=== PATIENT | female | born 1965 | race Caucasian/White ===

== ENCOUNTER 2018-02-07 11:40 | Emergency (ER) | payer OTHER ==
--- OUTSIDE RECORDS SUMMARY | 2018-02-07 11:54 | XMS REPORT | Clinical Summary ---
:1965 Author Organization [facility] Address [address] [place] [id number] Care Team Providers Name Role Phone Asked, No Pcp Primary Care Provider Unavailable Allergies Not on File Current Medications Not on file Active Problems Not on file Encounters Date Type Specialty Care Team Description 09/13/2017 Office Visit Neuropsychology Caesar Ratliff, PhD Memory loss 05/24/2017 Office Visit Neuropsychology Caesar Ratliff, PhD Memory loss due to medical condition after 02/06/2017 Social History Tobacco Use Types Packs/Day Years Used Date Never Assessed Sex Assigned at Date Recorded Not on file Last Filed Vital Signs Not on file Plan of Treatment Health Maintenance Due Date Last Done Comments CERVICAL CANCER SCREENING 1986 BREAST CANCER SCREENING 2015 COLON CANCER SCREENING 2015 SHINGRIX VACCINE (#1) 2015 INFLUENZA VACCINE 02/22/2018 Results Not on fileafter 02/06/2017
--- OUTSIDE RECORDS SUMMARY | 2018-02-07 11:54 | XMS REPORT | Continuity of Care Document ---
:1965 Author Organization Interface Problems Problem Status Onset Classification Date Comments Source Date Reported Discharge 05/20/20 05/23/2016 [facility] Diagnosis: Arm 16 Medical laceration Center LACERATION Active 05/19/[address] Hyperlipidemia Resolved Problem 05/23/2016 [facility] HTN (<span Resolved Problem 05/23/2016 [facility] ID="[id number]" Medical >Confirmed</span> Center ) Medications Medication Details Route Status Patient Ordering Order Source Instructions Provider Date Cephalexin 500 500 mg=1 Active [place] [facility] Oral Capsule cap, PO, 016 Medical [Keflex] QID, X 10 Center day, # 40 cap, 0 Refill(s) Epinephrine 0.01 1 ml, Inactive [place] MG/ML / Route: 016 Medical Lidocaine SUB-Q, Center Hydrochloride 10 Dosing MG/ML Injectable Weight Solution 79.545, kg, ONCE, STAT, Start date: 05/19/16 23:20:00 CDT, Stop date: 05/19/16 23:20:00 CDT Lidocaine 20 mg, 2 Inactive [place] Hydrochloride 10 mL, Route: 016 Medical MG/ML Injectable SUB-Q, Center Solution Drug Form: INJ, Dosing Weight 79.545, kg, ONCE, STAT, Start date: 05/19/16 23:12:00 CDT, Stop date: 05/19/16 23:12:00 CDTNotes: (Same as: Xylocaine) Morphine 4 mg, 1 Inactive [place] mL, Route: 016 Medical IVP, Drug Center form: INJ, ONCE, Dosing Weight 79.545, kg, Priority: STAT, Start date: 05/19/16 22:03:00 CDT, Stop date: 05/19/16 22:03:00 CDTNotes: (Same as:MORPhin e Sulfate) Allergies, Adverse Reactions, Alerts Substance Category Reaction Severity Reaction Status Date Comments Source type Reported NKDA Assertion Drug Active [facility] Immunizations Immunization Date Given Site Status Last Updated Comments Source Results Order Name Results Value Reference Date Interpretation Comments Source Range HEMATOLOGY RBC 3.91 M/CMM 4.20 - 05/20 5.40 /2015 [facility] HEMATOLOGY Hct 32.5 % 36.0 - 05/20 [place] 48.0 /2015 [facility] HEMATOLOGY Hgb 11.5 g/dL 12.0 - 05/20 16.0 /2015 [facility] HEMATOLOGY MCV 83.1 fL 80.0 - 05/20 [place] 98.0 [facility] HEMATOLOGY WBC 9.9 K/CMM 3.7 - 10.4 05/20 [facility] HEMATOLOGY MPV 9.2 fL 7.4 - 10.4 05/20 [facility] HEMATOLOGY MCHC 35.3 g/dL 32.0 - 05/20 36.0 [facility] HEMATOLOGY MCH 29.4 pg 27.0 - 05/20 31.0 [facility] HEMATOLOGY Platelet 185 K/CMM 133 - 450 05/20 [facility] HEMATOLOGY RDW 12.9 % 11.5 - 05/20 14.5 /2015 [facility] HEMATOLOGY Lymphocytes 1.4 K/CMM 1.0 - 5.5 05/20 [facility] HEMATOLOGY Basophils 0.3 % 0.0 - 1.0 05/20 [facility] HEMATOLOGY Segs-Bands # 7.9 K/CMM 1.5 - 8.1 05/20 [facility] HEMATOLOGY Eosinophils 0.5 % 0.0 - 4.0 05/20 [facility] HEMATOLOGY Segs 80.4 % 45.0 - 05/20 [place] 75.0 2016 [facility] HEMATOLOGY Lymphocytes 14.4 % 20.0 - 05/20 40.0 2016 [facility] HEMATOLOGY Monocytes 4.4 % 2.0 - 12.0 05/20 [facility] HEMATOLOGY Monocytes # 0.4 K/CMM 0.0 - 0.8 05/20 [facility] HEMATOLOGY Eosinophils 0.1 K/CMM 0.0 - 0.5 05/20 [facility] HEMATOLOGY Angle Rapid 79 degrees 64 - 80 05/20 [facility] HEMATOLOGY Max 65 mm 52 - 71 05/20 [facility] HEMATOLOGY G-value 9.2 K d/sc 5.0 - 11.6 05/20 [facility] HEMATOLOGY Estimated % 0.0 % 0.0 - 7.5 05/20 [facility] HEMATOLOGY ACT (TEG) 97 s 86 - 118 05/20 [facility] HEMATOLOGY [place] 0.4 min 05/20 [facility] HEMATOLOGY R-time Rapid 0.5 min 0.4 - 0.7 05/20 [facility] HEMATOLOGY K-time Rapid 0.9 min 0.6 - 2.3 05/20 [facility] ELECTROLYTE AGAP 15.1 meq/L 10.0 - 05/20 [facility] 20.0 [facility] ELECTROLYTE Sodium Lvl 142 meq/L 135 - 145 05/20 [facility] ELECTROLYTE Potassium 4.1 meq/L 3.5 - 5.1 05/20 [facility] ELECTROLYTE Creatinine 0.52 mg/dL 0.50 - 05/20 [facility] Lvl 1.40 [facility] ELECTROLYTE eGFR 112 05/20 Result Comment: The eGFR is calculated using the CKD-EPI formula. In most young, healthy individuals the eGFR will be > 90 mL/min/1.73m2. The eGFR declines with age. An eGFR of 60-89 may be normal in [facility] mL/min/1.73 some populations, particularly the elderly, for whom the CKD-EPI formula has not been extensively validated. Use of the eGFR is not recommended in the following populations: [address] Individuals with unstable creatinine concentrations, including patients and those with serious co-morbid conditions. Patients with extremes in muscle mass or diet. The data above are obtained from the National Kidney Disease Education Program (NKDEP) which additionally recommends that when the eGFR is used in patients with extremes of body mass index for purposes of drug dosing, the eGFR should be multiplied by the estimated BMI. ELECTROLYTE Calcium Lvl 8.1 mg/dL 8.5 - 10.5 05/20 [facility] ELECTROLYTE CO2 23 meq/L 24 - 32 05/20 [facility] ELECTROLYTE Chloride Lvl 108 meq/L 95 - 109 05/20 [facility] ELECTROLYTE BUN 12 mg/dL 7 - 22 05/20 S [facility] ELECTROLYTE Glucose Lvl 120 mg/dL 70 - 99 05/20 S [facility] HEMATOLOGY Platelet Clumped 133 - 450 05/20 Result Comment: Medical [facility] Lucie RILEY 05/19/2016 23:32 HEMATOLOGY MCH 28.8 pg 27.0 - 05/20 31.0 [facility] HEMATOLOGY Hct 30.5 % 36.0 - 05/20 [place] 48.0 [facility] HEMATOLOGY MCV 83.6 fL 80.0 - 05/20 [place] 98.0 [facility] HEMATOLOGY RBC 3.65 M/CMM 4.20 - 05/20 [place] 5.40 [facility] HEMATOLOGY Hgb 10.5 g/dL 12.0 - 05/20 16.0 [facility] HEMATOLOGY WBC 7.0 K/CMM 3.7 - 10.4 05/20 [facility] HEMATOLOGY MCHC 34.5 g/dL 32.0 - 05/20 [place] 36.0 [facility] HEMATOLOGY MPV 8.8 fL 7.4 - 10.4 05/20 [facility] HEMATOLOGY RDW 13.0 % 11.5 - 05/20 [place] 14. [facility] HEMATOLOGY Plt Morph Clumped 05/20 [facility] (05/19/16 10:43 PM) [place] HEMATOLOGY Monocytes # 0.2 K/CMM 0.0 - 0.8 05/20 [facility] HEMATOLOGY Lymphocytes 1.0 K/CMM 1.0 - 5.5 05/20 [place] # [facility] HEMATOLOGY Segs-Bands # 5.7 K/CMM 1.5 - 8.1 05/20 [facility] HEMATOLOGY Lymphocytes 13.9 % 20.0 - 05/20 40.0 [facility] HEMATOLOGY Segs 81.8 % 45.0 - 05/20 [place] 75.0 [facility] HEMATOLOGY RBC Morph Normal 05/20 [facility] (05/19/16 10:43 PM) [place] HEMATOLOGY Monocytes 3.3 % 2.0 - 12.0 05/20 [facility] HEMATOLOGY Basophils 0.5 % 0.0 - 1.0 05/20 [facility] HEMATOLOGY Eosinophils 0.5 % 0.0 - 4.0 05/20 [facility] /2015 [facility] Wrist Wrist EXAM: XR LEFT WRIST 3 VIEWS 05/19 - [facility] complete DX complete DX /2015 - Medical EXAM: XR LEFT FOREARM 2 VIEWS Center Read by: Benjamin Rick MD Dictated Date/time: 05/19/16 22:41 DATE: 05/19/2016 10:23 PM CDT Electronically Signed by: Benjamin Rick MD 05/19/16 22:42 FINAL REPORT INDICATION: Laceration COMPARISON: None TECHNIQUE: PA, lateral and oblique radiographs of the left wrist DISCUSSION: No acute fracture or malalignment is identified. Soft tissue swelling is present at the volar aspect of the distal forearm, with a skin surface defect that is consistent with laceration. The defect shows almost 1 cm separation of the skin surface, and is several centimeters in length. The depth is not clear based on the provided images. No foreign bodies are identified. IMPRESSION: Volar laceration at the distal forearm with surrounding swelling. No other abnormality. Forearm 2 Forearm 2 EXAM: XR LEFT WRIST 3 VIEWS 05/19 - [place] views DX views DX /2015 - Medical EXAM: XR LEFT FOREARM 2 VIEWS Center Read by: Benjamin Rick MD Dictated Date/time: 05/19/16 22:41 DATE: 05/19/2016 10:23 PM CDT Electronically Signed by: Benjamin Rick MD 05/19/16 22:42 FINAL REPORT INDICATION: Laceration COMPARISON: None TECHNIQUE: PA, lateral and oblique radiographs of the left wrist DISCUSSION: No acute fracture or malalignment is identified. Soft tissue swelling is present at the volar aspect of the distal forearm, with a skin surface defect that is consistent with laceration. The defect shows almost 1 cm separation of the skin surface, and is several centimeters in length. The depth is not clear based on the provided images. No foreign bodies are identified. IMPRESSION: Volar laceration at the distal forearm with surrounding swelling. No other abnormality. Vital Signs Vital Sign Value Date Comments Source Respitory Rate 18 05/20/2016 [facility] Systolic (mm Hg) 138 05/20/2016 [facility] Diastolic (mm Hg) 82 05/20/2016 [facility] Respitory Rate 16 05/20/2016 [facility] Systolic (mm Hg) 164 05/20/2016 [facility] Diastolic (mm Hg) 93 05/20/2016 [facility] BMI Calculated 31.06 05/20/2016 [facility] Weight 79.545 05/20/2016 [facility] Temperature Oral (F) 98.5 F 05/20/2016 [facility] Height 160.02 cm 05/20/2016 [facility] Respitory Rate 18 05/20/2016 [facility] Heart Rate 76 05/20/2016 [facility] Systolic (mm Hg) 157 05/20/2016 [facility] Diastolic (mm Hg) 94 05/20/2016 [facility] Encounters Location Location Encounter Encounter Reason Attending ADM DC Status Source Details Type Number For Provider Date Date [facility] [id number] P[place] 05/20 05/20 [facility] Kevin Chance /2015 [facility] [id number] SADIE 04/05 Active [facility] Procedures Procedure Code Date Perfomer Comments Source [id number] [facility] section [id number] [facility] Stent [id number] kidney [facility] placement<sup>1</meza Medical p> Center
--- OUTSIDE RECORDS SUMMARY | 2018-02-07 11:55 | XMS REPORT | Summary of Care ---
:1965 Author Organization [facility] Address [address] [place] [id number]- Encounter HQ Encntr_alias(FIN) [id number] Date(s): 05/19/16 - 05/20/[address] Professional Services provided by [facility] [place] [address]- Discharge Diagnosis: Arm laceration Discharge Disposition: Home or Self Care Attending Physician: Durga Ruffin MD Admitting Physician: Pernell Chance MD Referring Physician: Bala Louie MD Vital Signs Most recent to oldest 1 2 3 [Reference Range]: Height 160.02 cm (05/19/16 9:39 PM) Temperature Oral [96.4-99.1 98.5 DegF DegF] (05/19/16 9:39 PM) Blood Pressure 138/82 mmHg 164/93 mmHg 157/94 mmHg [90-140/60-90 mmHg] (05/19/16 11:32 PM) *HI* *HI* (05/19/16 9:54 PM) (05/19/16 9:39 PM) Respiratory Rate [14-20 18 BRMIN 16 BRMIN 18 BRMIN BRMIN] (05/19/16 11:32 PM) (05/19/16 9:54 PM) (05/19/16 9:39 PM) Peripheral Pulse Rate 76 bpm [60-100 bpm] (05/19/16 9:39 PM) Weight 79.545 kg (05/19/16 9:39 PM) Body Mass Index 31.06 m2 (05/19/16 9:39 PM) Problem List Condition Effective Dates Status Health Status Informant Hyperlipidemia(Confirmed) Resolved HTN (hypertension)(Confirmed) Resolved Allergies, Adverse Reactions, Alerts Substance Reaction Severity Status NKDA Active Medications Keflex 500 mg oral capsule 500 mg=1 cap, PO, QID, X 10 day, # 40 cap, 0 Refill(s) Start Date: 05/20/16 Stop Date: 05/30/16 Status: Orderedlidocaine 1% 20 mg, 2 mL, Route: SUB-Q, Drug Form: INJ, Dosing Weight 79.545, kg, ONCE, STAT , Start date: 05/19/16 23:12:00 CDT, Stop date: 05/19/16 23:12:00 CDT Notes: (Same as: Xylocaine) Start Date: 05/19/16 Stop Date: 05/19/16 Status: Orderedlidocaine-epi 1%-1:382078 1 ml, Route: SUB-Q, Dosing Weight 79.545, kg, ONCE, STAT, Start date: 05/19/16 23:20:00 CDT, Stop date: 05/19/16 23:20:00 CDT Start Date: 05/19/16 Stop Date: 05/19/16 Status: Discontinuedmorphine Sulfate 4 mg, 1 mL, Route: IVP, Drug form: INJ, ONCE, Dosing Weight 79.545, kg, Priority : STAT, Start date: 05/19/16 22:03:00 CDT, Stop date: 05/19/16 22:03:00 CDT Notes: (Same as:MORPhine Sulfate) Start Date: 05/19/16 Stop Date: 05/19/16 Status: Completed Results ELECTROLYTES Most recent to oldest [Reference Range]: 1 2 Sodium Lvl [135-145 mEq/L] 142 mEq/L (05/19/16 10:43 PM) Potassium Lvl [3.5-5.1 mEq/L] 4.1 mEq/L (05/19/16 10:43 PM) Chloride Lvl [95-109 mEq/L] 108 mEq/L (05/19/16 10:43 PM) CO2 [24-32 mEq/L] 23 mEq/L *LOW* (05/19/16 10:43 PM) AGAP [10.0-20.0 mEq/L] 15.1 mEq/L (05/19/16 10:43 PM) CHEM PANEL Most recent to oldest [Reference Range]: 1 2 Creatinine Lvl [0.50-1.40 mg/dL] 0.52 mg/dL (05/19/16 10:43 PM) eGFR 112 mL/min/1.73m2 1 *NA* (05/19/16 10:43 PM) BUN [7-22 mg/dL] 12 mg/dL (05/19/16 10:43 PM) Glucose Lvl [70-99 mg/dL] 120 mg/dL *HI* (05/19/16 10:43 PM) Calcium Lvl [8.5-10.5 mg/dL] 8.1 mg/dL *LOW* (05/19/16 10:43 PM) 1Result Comment: The eGFR is calculated using the CKD-EPI formula. In most young , healthy individualsthe eGFR will be >90 mL/min/1.73m2. The eGFR declines with age. An eGFR of 60-89 may be normal in some populations, particularly the elderly, for whom the CKD-EPI formula has not been extensively validated. Use of the eGFR is not recommended in the following populations: Individuals with unstable creatinine concentrations, including patients and those with serious co-morbid conditions. Patients with extremes in muscle mass or diet. The data above are obtained from the National Kidney Disease Education Program ( NKDEP) which additionally recommends that when the eGFR is used in patients with extremes of body mass index for purposesof drug dosing, the eGFR should be multiplied by the estimated BMI.HEMATOLOGY Most recent to oldest [Reference Range]: 1 2 WBC [3.7-10.4 K/CMM] 9.9 K/CMM 7.0 K/CMM (05/19/16 11:23 PM) (05/19/16 10:43 PM) RBC [4.20-5.40 M/CMM] 3.91 M/CMM 3.65 M/CMM *LOW* *LOW* (05/19/16 11:23 PM) (05/19/16 10:43 PM) Hgb [12.0-16.0 g/dL] 11.5 g/dL 10.5 g/dL *LOW* *LOW* (05/19/16 11:23 PM) (05/19/16 10:43 PM) Hct [36.0-48.0 %] 32.5 % 30.5 % *LOW* *LOW* (05/19/16 11:23 PM) (05/19/16 10:43 PM) MCV [80.0-98.0 fL] 83.1 fL 83.6 fL (05/19/16 11:23 PM) (05/19/16 10:43 PM) MCH [27.0-31.0 pg] 29.4 pg 28.8 pg (05/19/16 11:23 PM) (05/19/16 10:43 PM) MCHC [32.0-36.0 g/dL] 35.3 g/dL 34.5 g/dL (05/19/16 11:23 PM) (05/19/16 10:43 PM) RDW [11.5-14.5 %] 12.9 % 13.0 % (05/19/16 11:23 PM) (05/19/16 10:43 PM) Platelet [133-450 K/CMM] 185 K/CMM (05/19/16 11:23 PM) Platelet [133-450] Clumped 1 *NA* (05/19/16 10:43 PM) MPV [7.4-10.4 fL] 9.2 fL 8.8 fL (05/19/16 11:23 PM) (05/19/16 10:43 PM) Segs [45.0-75.0 %] 80.4 % 81.8 % *HI* *HI* (05/19/16 11:23 PM) (05/19/16 10:43 PM) Lymphocytes [20.0-40.0 %] 14.4 % 13.9 % *LOW* *LOW* (05/19/16 11:23 PM) (05/19/16 10:43 PM) Monocytes [2.0-12.0 %] 4.4 % 3.3 % (05/19/16 11:23 PM) (05/19/16 10:43 PM) Eosinophils [0.0-4.0 %] 0.5 % 0.5 % (05/19/16 11:23 PM) (05/19/16 10:43 PM) Basophils [0.0-1.0 %] 0.3 % 0.5 % (05/19/16 11:23 PM) (05/19/16 10:43 PM) Segs-Bands # [1.5-8.1 K/CMM] 7.9 K/CMM 5.7 K/CMM (05/19/16 11:23 PM) (05/19/16 10:43 PM) Lymphocytes # [1.0-5.5 K/CMM] 1.4 K/CMM 1.0 K/CMM (05/19/16 11:23 PM) (05/19/16 10:43 PM) Monocytes # [0.0-0.8 K/CMM] 0.4 K/CMM 0.2 K/CMM (05/19/16 11:23 PM) (05/19/16 10:43 PM) Eosinophils # [0.0-0.5 K/CMM] 0.1 K/CMM (05/19/16 11:23 PM) RBC Morph Normal (05/19/16 10:43 PM) Plt Morph Clumped (05/19/16 10:43 PM) ACT (TEG) Rapid [86-118 seconds] 97 seconds (05/19/16 11:20 PM) [place] Rapid 0.4 minutes *NA* (05/19/16 11:20 PM) R-time Rapid [0.4-0.7 minutes] 0.5 minutes (05/19/16 11:20 PM) K-time Rapid [0.6-2.3 minutes] 0.9 minutes (05/19/16 11:20 PM) Angle Rapid [64-80 degrees] 79 degrees (05/19/16 11:20 PM) Max Amplitude Rapid [52-71 mm] 65 mm (05/19/16 11:20 PM) G-value Rapid [5.0-11.6 K d/sc] 9.2 K d/sc (05/19/16 11:20 PM) Estimated % Lysis Rapid [0.0-7.5 %] 0.0 % (05/19/16 11:20 PM) 1Result Comment: Informed Lucie ECTR 05/19/2016 23:32 Immunizations No data available for this section Procedures Procedure Date Related Diagnosis Body Site hysterectomy section Stent placement1 1kidney Social History Social History Type Response Smoking Status Never smoker; Exposure to Tobacco Smoke None; Cigarette Smoking Last 365 Days No; Reg Smoking Cessation Counseling No Assessment and Plan No data available for this section
[2018-02-07] MEDS ORDERED: ONDANSETRON 4 MG/2 ML VIAL ONE (12:26)
[2018-02-07] MEDS ORDERED: NA CHLORIDE 0.9% 1,000 ML ONE (12:26)
[2018-02-07] MEDS ORDERED: KETOROLAC 30 MG/ML INJ ONE (12:26)
--- NOTE | 2018-02-07 12:40 | RAD REPORT ---
EXAM DESCRIPTION: CT - Stone Protocol - 02/07/2018 12:27 pm CLINICAL HISTORY: Flank pain. Flank pain;Pain COMPARISON: CTSTONE PROTOCOL dated 04/29/2015 TECHNIQUE: Axial images were obtained without oral or IV contrast. Lack of contrast limits solid org an and vascular assessment. The [id number] spans the entirety of the system partially obscuring uppermost abdomen and lung bases. Coronal reformatted images were obtained and reviewed. All CT scans are performed using dose optimization technique as appropriate and may include automated exposure control or mA/KV adjustment according to patient size. FINDINGS: The lower lung lyons are clear. Imaged portions of the liver and spleen show no suspicious findings on non-contrast imaging. The panc reas and adrenal glands are normal. No pathologic lymphadenopathy in the abdomen or pelvis. No urinary tract stones or obstructive uropathy. Mild inflammatory changes are seen surrounding the r ight ureter proximally and the inferior aspect of the right kidney. No bowel obstruction, free air, free fluid or abscess. The appendix is not identified as a discrete s tructure, however, no secondary findings of appendicitis are identified. No significant bony abnormality. IMPRESSION: No urinary tract stones or obstructive uropathy. Findings suspicious for early right-sided pyelonephritis noted.
[2018-02-07 13:03] LABS: Absolute Monocytes 0.4 K/uL (0.1-1.3); Absolute Neutrophil 9.2 K/uL (1.8-8.0); Basophils % 0.6 % (0-1.3); Eosinophils % 0.7 % (0-4.4); Lymphocytes % 9.3 % (15.3-44.8); MCH 29.2 pg (27.0-35.0); MCV 83.2 fL (80-100); MPV 9.5 fL (7.6-11.3); Monocytes % 3.7 % (3.3-12.3); RBC Red Blood Cell Count 5.17 M/uL (3.86-4.86)
[2018-02-07] MEDS ORDERED: CEFTRIAXONE/SWI 1gm 1 GM/10 ML SYR ONE (13:22)
[2018-02-07 13:51] LABS: Urine White Blood Cell Casts OK
[2018-02-07 13:52] LABS: Blood Morphology Comment NOT SEEN (NOT SEEN); Platelet Estimate ADEQ
[2018-02-07] MEDS ORDERED: levoFLOXacin 750 MG TAB ONE (13:52)
[2018-02-07 13:59] LABS: Urine Bacteria 20-50 /HPF (<20); Urine RBC <5 /HPF (NONE SEEN)
[2018-02-07 14:00] LABS: Urine Culture Reflex Order NOT NEEDED; Urine Mucus 2+ /HPF (NONE SEEN)
[2018-02-07 14:11] LABS: Albumin 4.2 g/dL (3.4-5.0); Bilirubin Direct 0.1 mg/dL (0-0.2); Bilirubin Total 0.7 mg/dL (0.2-1.0); Potassium 3.6 mmol/L (3.5-5.1); Protein, Total 8.2 g/dL (6.4-8.2)
--- NOTE | 2018-02-07 14:24 | EDPHYS ---
Physician Documentation [facility] Name: Ana Donnelly Age: 52 yrs Sex: Female : 1965 Arrival Date: 02/07/2018 Time: 11:43 Bed 6 Private MD: ED Physician Bala Louie HPI: 02/07 12:16 This 52 yrs old Female presents to ER via Ambulatory with complaints of Low gabriel Back Pain. 12:16 The patient presents with pain that is acute, with no known mechanism of injury. The gabriel symptoms are located in the right mid back and right low back. The pain does not radiate. The problem was sustained from unknown cause. Onset: The symptoms/episode began/occurred 2 day(s) ago. Modifying factors: The patient symptoms are alleviated by nothing, the patient symptoms are aggravated by nothing. Associated signs and symptoms: Pertinent positives: dysuria. Severity of symptoms: At their worst the symptoms were moderate, in the emergency department the symptoms are unchanged. The patient has not experienced similar symptoms in the past. 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 - Social history:: Smoking status: Patient/guardian denies using tobacco, Patient/guardian denies using alcohol. - Ebola Screening: : Patient negative for fever greater than or equal to 101.5 degrees Fahrenheit, and additional compatible Ebola Virus Disease symptoms Patient denies exposure to infectious person Patient denies travel to an Ebola-affected area in the 21 days before illness onset. - Family history:: not pertinent. ROS: 12:16 Constitutional: Negative for fever, chills, and weight loss, Eyes: Negative for injury, gabriel pain, redness, and discharge, ENT: Negative for injury, pain, and discharge, Neck: Negative for injury, pain, and swelling, Cardiovascular: Negative for chest pain, palpitations, and edema, Respiratory: Negative for shortness of breath, cough, wheezing, and pleuritic chest pain, Abdomen/GI: Negative for abdominal pain, nausea, vomiting, diarrhea, and constipation, : Negative for injury, bleeding, discharge, and swelling, MS/Extremity: Negative for injury and deformity, Skin: Negative for injury, rash, and discoloration, Neuro: Negative for headache, weakness, numbness, tingling, and seizure, Psych: Negative for depression, anxiety, suicide ideation, homicidal ideation, and hallucinations, Allergy/Immunology: Negative for hives, rash, and allergies, Endocrine: Negative for neck swelling, polydipsia, polyuria, polyphagia, and marked weight changes, Hematologic/Lymphatic: Negative for swollen nodes, abnormal bleeding, and unusual bruising. 12:16 Back: Positive for decreased range of motion, pain with movement, flank pain, on the right, of the right mid back and right low back. Exam: 12:16 Constitutional: This is a well developed, well nourished patient who is awake, alert, gabriel and in no acute distress. Head/Face: Normocephalic, atraumatic. Eyes: Pupils equal round and reactive to light, extra-ocular motions intact. Lids and lashes normal. Conjunctiva and sclera are non-icteric and not injected. Cornea within normal limits. Periorbital areas with no swelling, redness, or edema. ENT: Nares patent. No nasal discharge, no septal abnormalities noted. Tympanic membranes are normal and external auditory canals are clear. Oropharynx with no redness, swelling, or masses, exudates, or evidence of obstruction, uvula midline. Mucous membranes moist. Neck: Trachea midline, no thyromegaly or masses palpated, and no cervical lymphadenopathy. Supple, full range of motion without nuchal rigidity, or vertebral point tenderness. No Meningismus. Chest/axilla: Normal chest wall appearance and motion. Nontender with no deformity. No lesions are appreciated. Cardiovascular: Regular rate and rhythm with a normal S1 and S2. No gallops, murmurs, or rubs. Normal PMI, no JVD. No pulse deficits. Respiratory: Lungs have equal breath sounds bilaterally, clear to auscultation and percussion. No rales, rhonchi or wheezes noted. No increased work of breathing, no retractions or nasal flaring. Abdomen/GI: Soft, non-tender, with normal bowel sounds. No distension or tympany. No guarding or rebound. No evidence of tenderness throughout. Female : Normal external genitalia. Skin: Warm, dry with normal turgor. Normal color with no rashes, no lesions, and no evidence of cellulitis. MS/ Extremity: Pulses equal, no cyanosis. Neurovascular intact. Full, normal range of motion. Neuro: Awake and alert, GCS 15, oriented to person, place, time, and situation. Cranial nerves II-XII grossly intact. Motor strength 5/5 in all extremities. Sensory grossly intact. Cerebellar exam normal. Normal gait. Psych: Awake, alert, with orientation to person, place and time. Behavior, mood, and affect are within normal limits. 12:16 Back: pain, that is moderate, ROM is painful, normal spinal alignment noted, CVA tenderness, that is mild, is noted on the right. Vital Signs: 11:47 BP 166 / 111; Pulse 113; Resp 18; Temp 98.3(O); Pulse Ox 98% on R/A; Weight 79.38 kg; hj Height 5 ft. 3 in. (160.02 cm); Pain 10/10; 14:45 BP 162 / 103; Pulse 99; Resp 20; Pulse Ox 96% on R/A; sm4 15:55 BP 150 / 94; Pulse 93; Resp 16; Pulse Ox 96% ; jl7 11:47 Body Mass Index 31.00 (79.38 kg, 160.02 cm) MDM: 11:58 Patient medically screened. [facility] 12:18 Data reviewed: vital signs, nurses notes, lab test result(s), radiologic studies, CT gabriel scan. 02/07 12:16 Order name: Amylase, Serum; Complete Time: 14:18 [facility] 02/07 12:16 Order name: Basic Metabolic Panel; Complete Time: 14:18 [facility] 02/07 12:16 Order name: CBC with Diff; Complete Time: 14:18 [facility] 02/07 12:16 Order name: Creatinine for Radiology; Complete Time: 14:18 gabriel 02/07 12:16 Order name: Hepatic Function; Complete Time: 14:18 [facility] 02/07 12:16 Order name: Lipase; Complete Time: 14:18 [facility] 02/07 12:16 Order name: Urine Microscopic Only; Complete Time: 14:18 02/07 12:16 Order name: CT Stone Protocol; Complete Time: 12:57 [facility] 02/07 12:16 Order name: Urine Culture [facility] 02/07 13:04 Order name: CBC Smear Scan; Complete Time: 14:18 [facility] 02/07 12:16 Order name: IV Saline Lock; Complete Time: 12:21 [facility] 02/07 12:16 Order name: Labs collected and sent; Complete Time: 13:27 [facility] 02/07 12:16 Order name: Urine Dipstick-Ancillary (obtain specimen); Complete Time: 13:27 [facility] Administered Medications: 12:30 Drug: NS 0.9% 1000 ml Route: IV; Rate: 1 bolus; Site: right forearm; ae1 12:30 Drug: Zofran 4 mg Route: IVP; Site: right forearm; ae1 12:45 Follow up: Response: No adverse reaction ae1 12:33 Drug: TORadol 30 mg Route: IVP; Site: right forearm; ae1 12:45 Follow up: Response: No adverse reaction ae1 13:15 Drug: Rocephin - (cefTRIAXone) 1 grams Route: IVPB; Infused Over: 30 mins; Site: right jl7 forearm; 13:20 Follow up: IV Status: Completed infusion sm4 13:50 Drug: LevOfloxacin 750 mg Route: PO; sm4 15:25 Follow up: Response: No adverse reaction sm4 14:15 Drug: Norvasc 5 mg Route: PO; sm4 15:25 Follow up: Response: No adverse reaction 4 15:55 Follow up: Response: Blood pressure is lowered jl7 Disposition: 02/07/18 14:24 Discharged to Home. Impression: Low back pain, Dysuria, Acute tubulo-interstitial nephritis, Essential (primary) hypertension. - Condition is Stable. - Discharge Instructions: Back Pain, Adult, Dysuria, Hypertension, Musculoskeletal Pain, Pyelonephritis, Adult, Pyelonephritis, Adult, [id number], Back Injury Prevention, Ykpy-jo-Otwy, Back Pain, Adult, Jwqw-jg-Gjjs, How to Take Your Blood Pressure, Mbpu-aw-Psus, Managing Your High Blood Pressure. - Prescriptions for Levaquin 500 mg Oral Tablet - take 1 tablet by ORAL route once daily for 10 days; 10 tablet. Tylenol- Codeine #3 300-30 mg Oral Tablet - take 2 tablets by ORAL route every 6 hours As needed; 24 tablet. Norvasc 5 mg Oral Tablet - take 1 tablet by ORAL route once daily; 20 tablet. - Medication Reconciliation Form, Thank You Letter, Antibiotic Education, Prescription Opioid Use form. - Follow up: Private Physician; When: 2 - 3 days; Reason: Recheck today's complaints, Continuance of care, Re-evaluation by your physician. - Problem is new. - Symptoms have improved. Signatures: Dispatcher [employer] [facility] Bala Louie MD MD cha Joaquin, Henry RN RN hj Oskar Piedra RN RN ae1 Jack Spence RN RN jl7 Tyson Clark RN RN sm4 Corrections: (The following items were deleted from the chart) 14:12 12:58 BLOOD CULTURE*+[id number].LAB.BRZ ordered. [facility] 15:59 14:24 02/07/2018 14:24 Discharged to Home. Impression: Low back pain; Dysuria; Acute jl7 tubulo-interstitial nephritis; Essential (primary) hypertension. Condition is Stable. Discharge Instructions: Back Pain, Adult, Dysuria, Hypertension, Musculoskeletal Pain, Pyelonephritis, Adult, Pyelonephritis, Adult, Yvwv-gt-Jqez, Back Injury Prevention, Pysg-wk-Fbtt, Back Pain, Adult, Iqlm-vx-Sapz. Prescriptions for Levaquin 500 mg Oral Tablet - take 1 tablet by ORAL route once daily for 10 days; 10 tablet, Tylenol-Codeine #3 300-30 mg Oral Tablet - take 2 tablets by ORAL route every 6 hours As needed; 24 tablet. and Forms are Medication Reconciliation Form, Thank You Letter, Antibiotic Education, Prescription Opioid Use. Follow up: Private Physician; When: 2 - 3 days; Reason: Recheck today's complaints, Continuance of care, Re-evaluation by your physician. Problem is new. Symptoms have improved. gabriel
--- NOTE | 2018-02-07 14:24 | ER ---
Nurse's Notes [facility] Name: Ana Donnelly Age: 52 yrs Sex: Female : 1965 Arrival Date: 02/07/2018 Time: 11:43 Bed 6 Private MD: Diagnosis: Low back pain;Dysuria;Acute tubulo-interstitial nephritis;Essential (primary) hypertension Presentation: 02/07 11:43 Presenting complaint: Patient states: hx of kidney stone, R lower back pain that hj started yesterday, but last Tuesday, my mid back, along the shoulder blade, was hurting like a stabbing type of pain; denies nausea and vomiting; reports having low grade fever;. Transition of care: patient was not received from another setting of care. Onset of symptoms was February 07, 2018. Risk Assessment: Do you want to hurt yourself or someone else? Patient reports no desire to harm self or others. Initial Sepsis Screen: Does the patient meet any 2 criteria? No. Patient's initial sepsis screen is negative. Does the patient have a suspected source of infection? No. Patient's initial sepsis screen is negative. Care prior to arrival: None. 11:43 Method Of Arrival: Ambulatory 11:43 Acuity: KOTA 3 hj Triage Assessment: 11:47 General: Appears in no apparent distress. uncomfortable, Behavior is calm, cooperative, hj appropriate for age. Pain: Complains of pain in right low back Pain currently is 10 out of 10 on a pain scale. 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 - Social history:: Smoking status: Patient/guardian denies using tobacco, Patient/guardian denies using alcohol. - Ebola Screening: : Patient negative for fever greater than or equal to 101.5 degrees Fahrenheit, and additional compatible Ebola Virus Disease symptoms Patient denies exposure to infectious person Patient denies travel to an Ebola-affected area in the 21 days before illness onset. - Family history:: not pertinent. Screenin:47 Abuse screen: Denies threats or abuse. Denies injuries from another. Nutritional hj screening: No deficits noted. Tuberculosis screening: No symptoms or risk factors identified. Fall Risk None identified. Assessment: 12:27 General: Appears in no apparent distress. Behavior is calm, cooperative, appropriate sm4 for age, Smells of Reports Denies . Pain: Complains of pain in right low back Pain radiates to right flank Is intermittent. Neuro: No deficits noted. Cardiovascular: No deficits noted. Respiratory: No deficits noted. GI: No deficits noted. : Reports urinary frequency, since 2 days. EENT: No deficits noted. Derm: No deficits noted. Musculoskeletal: No deficits noted. 14:12 Reassessment: blood cultures cancelled due to antibiotics being given prior to cultures sm4 being drawn. lab advised and md advised.. 16:06 General: no change in pt cond. cont to wait for lab results. pt advised and sm4 understanding verbalized. family at bedside. will cont to monitor. Vital Signs: 11:47 BP 166 / 111; Pulse 113; Resp 18; Temp 98.3(O); Pulse Ox 98% on R/A; Weight 79.38 kg; hj Height 5 ft. 3 in. (160.02 cm); Pain 10/10; 14:45 BP 162 / 103; Pulse 99; Resp 20; Pulse Ox 96% on R/A; sm4 15:55 BP 150 / 94; Pulse 93; Resp 16; Pulse Ox 96% ; jl7 11:47 Body Mass Index 31.00 (79.38 kg, 160.02 cm) ED Course: 11:43 Patient arrived in ED. hj 11:46 Triage completed. hj 11:47 Arm band placed on left wrist. hj 11:49 Patient has correct armband on for positive identification. Placed in gown. Bed in low hj position. Call light in reach. Side rails up X 1. Adult w/ patient. 11:57 Bala Louie MD is Attending Physician. [facility] 12:00 Inserted saline lock: 20 gauge in right forearm, using aseptic technique. sm4 12:11 Tyson Clark, GIULIA is Primary Nurse. sm4 12:25 CT completed. Patient tolerated procedure well. Patient moved to CT via wheelchair. Patient moved back from CT. 12:27 CT Stone Protocol In Process Unspecified. EDMS 12:45 Amylase, Serum Sent. ae1 12:45 Basic Metabolic Panel Sent. ae1 12:46 CBC with Diff Sent. ae1 12:46 Creatinine for Radiology Sent. ae1 12:46 Hepatic Function Sent. ae1 12:46 Lipase Sent. ae1 15:56 No provider procedures requiring assistance completed. IV discontinued, intact, jl7 bleeding controlled, No redness/swelling at site. Pressure dressing applied. Administered Medications: 12:30 Drug: NS 0.9% 1000 ml Route: IV; Rate: 1 bolus; Site: right forearm; ae1 12:30 Drug: Zofran 4 mg Route: IVP; Site: right forearm; ae1 12:45 Follow up: Response: No adverse reaction ae1 12:33 Drug: TORadol 30 mg Route: IVP; Site: right forearm; ae1 12:45 Follow up: Response: No adverse reaction ae1 13:15 Drug: Rocephin - (cefTRIAXone) 1 grams Route: IVPB; Infused Over: 30 mins; Site: right jl7 forearm; 13:20 Follow up: IV Status: Completed infusion sm4 13:50 Drug: LevOfloxacin 750 mg Route: PO; sm4 15:25 Follow up: Response: No adverse reaction sm4 14:15 Drug: Norvasc 5 mg Route: PO; sm4 15:25 Follow up: Response: No adverse reaction sm4 15:55 Follow up: Response: Blood pressure is lowered jl7 Outcome: 14:24 Discharge ordered by MD. rios 15:56 Discharged to home ambulatory. jl7 15:56 Condition: stable 15:56 Discharge instructions given to patient, family, Instructed on discharge instructions, follow up and referral plans. medication usage, Demonstrated understanding of instructions, follow-up care, medications, Prescriptions given X 3. 15:59 Patient left the ED. jl7 Signatures: Dispatcher [employer] EDMS Bala Louie MD MD cha Jones, Susan sj Joaquin, Henry, RN RN hj Elliott, Andrea, RN RN ae1 Jack Spence RN RN jl7 Tyson Clark RN RN sm4 Corrections: (The following items were deleted from the chart) 11:50 11:47 Pulse 113bpm; Resp 18bpm; Pulse Ox 98% RA; Temp 98.3F Oral; 79.38 kg; Height 5 hj ft. 3 in.; BMI: 31.0; Pain 10/10; hj
[2018-02-07] MEDS ORDERED: AMLODIPINE 5 MG TAB ONE (14:35)
[2018-02-07 16:08] VITALS: TEMP 98.3
[2018-02-07 16:09] VITALS: O2SAT 96
[2018-02-07 16:10] VITALS: BP 150/94
== END 2018-02-07 15:59 | disposition home or self-care (01) ==
LOC: ER 11:40
DX: N10 Acute pyelonephritis (principal); R30.0 Dysuria; I10 Essential (primary) hypertension
CPT/HCPCS: 36415; 74176; 76377; 80048; 80076; 81015; 82150; 83690; 85025; 87086; 87088; 96374; 96375; 99284; J0696; J2405; J7030